=== PATIENT | female | born 1945 | race Asian ===

== ENCOUNTER 2019-07-12 16:56 | Inpatient (IN) | payer OTHER ==
[~2019-07-12] VITALS: Ht 160 cm; Wt 73.5 kg
[2019-07-12 17:35] VITALS: Ht 160 cm; Wt 73.5 kg
[2019-07-12 17:44] LABS: PLATELET COUNT 154 x10^3mcL (130-400)
[2019-07-12 18:33] LABS: ALKALINE PHOSPHATASE 219 U/L (46-116); ALT/SGPT 23 U/L (14-59); AST/SGOT 21 U/L (15-37); BILIRUBIN TOTAL 0.89 mg/dL (0.20-1.00); CALCIUM 9.6 mg/dL (8.5-10.1); CARBON DIOXIDE 19.1 mmol/L (21-32); CHLORIDE SERUM 92 mmol/L (98-107); CREATININE SERUM 2.4 mg/dL (0.6-1.0); LACTIC DEHYDROGENASE (LDH) 233 U/L (100-190); SODIUM SERUM 128 mmol/L (136-145); TOTAL PROTEIN, SERUM 7.2 g/dL (6.4-8.2)
[2019-07-12 18:37] LABS: GLUCOSE SERUM 635 mg/dL (74-106)
[2019-07-12 18:50] LABS: microscopic required? YES; urine erythrocyte 3+ (NEGATIVE)
[2019-07-12 19:08] LABS: BAND NEUTROPHIL 8 % (0-10); BASOPHIL 0 % (0-2); METAMYELOCTE 2 % (0-2); MONOCYTE 1 % (0-7); SEGMENTED NEUTROPHILS 84 % (37-75)
[2019-07-12 19:09] LABS: rbc morphology (normal/abnorm) NORMAL (NORMAL)
[2019-07-12 20:01] LABS: C REACTIVE PROTEIN 21.4 mg/dL (<=0.9)
[2019-07-12] MEDS ORDERED: ADALAT CC30 MG PO (20:29)
[2019-07-12 21:56] LABS: CALCIUM 8.1 mg/dL (8.5-10.1); CARBON DIOXIDE 14.6 mmol/L (21-32); CHLORIDE SERUM 104 mmol/L (98-107); CREATININE SERUM 2.6 mg/dL (0.6-1.0); GLUCOSE SERUM 264 mg/dL (74-106); MAGNESIUM 1.5 mg/dL (1.8-2.4); PHOSPHOROUS 2.1 mg/dL (2.5-4.9); POTASSIUM SERUM 3.1 mmol/L (3.5-5.1); SODIUM SERUM 138 mmol/L (136-145)
[2019-07-12 23:15] VITALS: BP 102/48
[2019-07-13] VITALS: BP 83/42
[2019-07-13 01:09] LABS: CALCIUM 8.5 mg/dL (8.5-10.1); CARBON DIOXIDE 17.3 mmol/L (21-32); CHLORIDE SERUM 103 mmol/L (98-107); CREATININE SERUM 2.5 mg/dL (0.6-1.0); GLUCOSE SERUM 234 mg/dL (74-106); MAGNESIUM 1.6 mg/dL (1.8-2.4); PHOSPHOROUS 2.2 mg/dL (2.5-4.9); POTASSIUM SERUM 3.2 mmol/L (3.5-5.1); SODIUM SERUM 138 mmol/L (136-145)
[2019-07-13 03:00] VITALS: BP 106/55
[2019-07-13 06:11] LABS: CALCIUM 8.5 mg/dL (8.5-10.1); CHLORIDE SERUM 103 mmol/L (98-107); CREATININE SERUM 2.5 mg/dL (0.6-1.0); GLUCOSE SERUM 304 mg/dL (74-106); LACTIC DEHYDROGENASE (LDH) 280 U/L (100-190); MAGNESIUM 2.2 mg/dL (1.8-2.4); PHOSPHOROUS 2.4 mg/dL (2.5-4.9); POTASSIUM SERUM 5.4 mmol/L (3.5-5.1); SODIUM SERUM 134 mmol/L (136-145)
[2019-07-13 06:20] LABS: C REACTIVE PROTEIN 26.9 mg/dL (<=0.9)
[2019-07-13 07:26] LABS: RED CELL DISTRIBUTION WIDTH 13.4 % (11.5-14.5)
[2019-07-13 08:00] VITALS: BP 129/65
[2019-07-13 08:21] LABS: PLATELET COUNT 84 x10^3mcL (130-400)
[2019-07-13 08:39] LABS: CALCIUM 7.9 mg/dL (8.5-10.1); CARBON DIOXIDE 14.4 mmol/L (21-32); CHLORIDE SERUM 102 mmol/L (98-107); CREATININE SERUM 2.5 mg/dL (0.6-1.0); GLUCOSE SERUM 448 mg/dL (74-106); MAGNESIUM 1.8 mg/dL (1.8-2.4); PHOSPHOROUS 2.7 mg/dL (2.5-4.9); POTASSIUM SERUM 5.5 mmol/L (3.5-5.1); SODIUM SERUM 131 mmol/L (136-145)
[2019-07-13 09:44] LABS: BAND NEUTROPHIL 7 % (0-10); BASOPHIL 0 % (0-2); MONOCYTE 11 % (0-7); SEGMENTED NEUTROPHILS 77 % (37-75)
[2019-07-13 09:45] LABS: rbc morphology (normal/abnorm) ABNORMAL (NORMAL)
[2019-07-13 09:46] LABS: PLATELET MORPHOLOGY PLATELETS DECREASED
[2019-07-13 12:56] LABS: CALCIUM 8.1 mg/dL (8.5-10.1); CARBON DIOXIDE 14.5 mmol/L (21-32); CHLORIDE SERUM 100 mmol/L (98-107); CREATININE SERUM 2.8 mg/dL (0.6-1.0); GLUCOSE SERUM 443 mg/dL (74-106); MAGNESIUM 1.8 mg/dL (1.8-2.4); PHOSPHOROUS 2.6 mg/dL (2.5-4.9); POTASSIUM SERUM 4.9 mmol/L (3.5-5.1); SODIUM SERUM 130 mmol/L (136-145)
[2019-07-13 16:43] LABS: CALCIUM 8.1 mg/dL (8.5-10.1); CARBON DIOXIDE 17.7 mmol/L (21-32); CHLORIDE SERUM 102 mmol/L (98-107); CREATININE SERUM 2.8 mg/dL (0.6-1.0); GLUCOSE SERUM 300 mg/dL (74-106); MAGNESIUM 1.9 mg/dL (1.8-2.4); PHOSPHOROUS 1.7 mg/dL (2.5-4.9); POTASSIUM SERUM 4.7 mmol/L (3.5-5.1); SODIUM SERUM 133 mmol/L (136-145)
[2019-07-13 19:45] VITALS: BP 84/44
[2019-07-13 20:40] LABS: CALCIUM 7.9 mg/dL (8.5-10.1); CARBON DIOXIDE 17.9 mmol/L (21-32); CHLORIDE SERUM 104 mmol/L (98-107); CREATININE SERUM 3.2 mg/dL (0.6-1.0); GLUCOSE SERUM 134 mg/dL (74-106); MAGNESIUM 1.7 mg/dL (1.8-2.4); POTASSIUM SERUM 4.7 mmol/L (3.5-5.1); SODIUM SERUM 135 mmol/L (136-145)
[2019-07-13 20:57] LABS: PHOSPHOROUS 0.9 mg/dL (2.5-4.9)
[2019-07-14 00:02] VITALS: BP 81/52
[2019-07-14 02:00] LABS: CALCIUM 6.3 mg/dL (8.5-10.1); CHLORIDE SERUM 104 mmol/L (98-107); CREATININE SERUM 2.8 mg/dL (0.6-1.0); GLUCOSE SERUM 344 mg/dL (74-106); MAGNESIUM 1.5 mg/dL (1.8-2.4); PHOSPHOROUS 1.5 mg/dL (2.5-4.9); POTASSIUM SERUM 4.5 mmol/L (3.5-5.1); SODIUM SERUM 132 mmol/L (136-145)
[2019-07-14 03:10] VITALS: BP 91/56
[2019-07-14 04:39] LABS: RED CELL DISTRIBUTION WIDTH 13.9 % (11.5-14.5)
[2019-07-14 04:44] LABS: PLATELET COUNT 44 x10^3mcL (130-400)
[2019-07-14 04:54] LABS: CALCIUM 7.4 mg/dL (8.5-10.1); CARBON DIOXIDE 19.7 mmol/L (21-32); CHLORIDE SERUM 100 mmol/L (98-107); CREATININE SERUM 3.4 mg/dL (0.6-1.0); GLUCOSE SERUM 276 mg/dL (74-106); MAGNESIUM 1.8 mg/dL (1.8-2.4); PHOSPHOROUS 2.1 mg/dL (2.5-4.9); SODIUM SERUM 130 mmol/L (136-145)
[2019-07-14 05:54] LABS: BAND NEUTROPHIL 28 % (0-10); BASOPHIL 0 % (0-2); METAMYELOCTE 2 % (0-2); MONOCYTE 3 % (0-7); SEGMENTED NEUTROPHILS 60 % (37-75); rbc morphology (normal/abnorm) NORMAL (NORMAL)
[2019-07-14 05:55] LABS: PLATELET MORPHOLOGY LARGE PLATELET SEEN
[2019-07-14 08:00] VITALS: BP 103/65
[2019-07-14 09:00] LABS: CALCIUM 7.6 mg/dL (8.5-10.1); CARBON DIOXIDE 16.8 mmol/L (21-32); CHLORIDE SERUM 101 mmol/L (98-107); CREATININE SERUM 3.5 mg/dL (0.6-1.0); GLUCOSE SERUM 247 mg/dL (74-106); PHOSPHOROUS 2.2 mg/dL (2.5-4.9); SODIUM SERUM 129 mmol/L (136-145)
[2019-07-14 12:30] LABS: CALCIUM 7.4 mg/dL (8.5-10.1); CARBON DIOXIDE 18.6 mmol/L (21-32); CHLORIDE SERUM 98 mmol/L (98-107); CREATININE SERUM 3.6 mg/dL (0.6-1.0); GLUCOSE SERUM 356 mg/dL (74-106); MAGNESIUM 1.9 mg/dL (1.8-2.4); PHOSPHOROUS 2.3 mg/dL (2.5-4.9); POTASSIUM SERUM 4.9 mmol/L (3.5-5.1); SODIUM SERUM 128 mmol/L (136-145)
[2019-07-14 16:37] LABS: CALCIUM 7.4 mg/dL (8.5-10.1); CARBON DIOXIDE 19.7 mmol/L (21-32); CHLORIDE SERUM 97 mmol/L (98-107); CREATININE SERUM 3.7 mg/dL (0.6-1.0); GLUCOSE SERUM 324 mg/dL (74-106); MAGNESIUM 1.7 mg/dL (1.8-2.4); PHOSPHOROUS 2.8 mg/dL (2.5-4.9); POTASSIUM SERUM 4.9 mmol/L (3.5-5.1); SODIUM SERUM 129 mmol/L (136-145)
[2019-07-14 21:35] VITALS: BP 119/64
[2019-07-14 23:16] VITALS: BP 111/69
[2019-07-15 03:08] VITALS: BP 111/58
[2019-07-15 06:06] LABS: RED CELL DISTRIBUTION WIDTH 13.8 % (11.5-14.5)
[2019-07-15 06:15] LABS: PLATELET COUNT 58 x10^3mcL (130-400)
[2019-07-15 06:25] LABS: CALCIUM 7.4 mg/dL (8.5-10.1); CARBON DIOXIDE 21.5 mmol/L (21-32); CHLORIDE SERUM 98 mmol/L (98-107); GLUCOSE SERUM 207 mg/dL (74-106); MAGNESIUM 1.8 mg/dL (1.8-2.4); POTASSIUM SERUM 4.3 mmol/L (3.5-5.1); SODIUM SERUM 132 mmol/L (136-145)
[2019-07-15 07:42] VITALS: BP 124/70
[2019-07-15 13:30] LABS: BAND NEUTROPHIL 27 % (0-10); MONOCYTE 3 % (0-7); SEGMENTED NEUTROPHILS 62 % (37-75)
[2019-07-15 13:31] LABS: PLATELET MORPHOLOGY PLATELETS NORMAL; rbc morphology (normal/abnorm) NORMAL (NORMAL)
[2019-07-15 20:44] VITALS: BP 134/62
[2019-07-16 05:10] VITALS: BP 118/58
[2019-07-16 06:11] LABS: RED CELL DISTRIBUTION WIDTH 13.8 % (11.5-14.5)
[2019-07-16 06:23] LABS: CALCIUM 8.2 mg/dL (8.5-10.1); CARBON DIOXIDE 28.4 mmol/L (21-32); CHLORIDE SERUM 103 mmol/L (98-107); CREATININE SERUM 3.3 mg/dL (0.6-1.0); GLUCOSE SERUM 178 mg/dL (74-106); MAGNESIUM 2.1 mg/dL (1.8-2.4); POTASSIUM SERUM 3.9 mmol/L (3.5-5.1); SODIUM SERUM 140 mmol/L (136-145)
[2019-07-16 06:24] LABS: PLATELET COUNT 50 x10^3mcL (130-400)
[2019-07-16 07:47] VITALS: BP 162/65
[2019-07-16 08:30] VITALS: BP 150/62
[2019-07-16 09:18] LABS: BASOPHIL 0 % (0-2); MONOCYTE 5 % (0-7)
[2019-07-16 09:24] LABS: BAND NEUTROPHIL 20 % (0-10); SEGMENTED NEUTROPHILS 65 % (37-75)
[2019-07-16 09:26] LABS: PLATELET MORPHOLOGY PLATELETS DECREASED
[2019-07-16 09:27] LABS: rbc morphology (normal/abnorm) ABNORMAL (NORMAL); target cell (codocyte) 1+
[2019-07-16 12:34] VITALS: BP 150/86
[2019-07-16 16:25] VITALS: BP 129/98
[2019-07-16 20:25] VITALS: BP 181/87
[2019-07-17 05:25] VITALS: BP 144/88
[2019-07-17 07:21] VITALS: BP 152/105
[2019-07-17 09:19] LABS: RED CELL DISTRIBUTION WIDTH 13.9 % (11.5-14.5)
[2019-07-17 09:25] LABS: PLATELET COUNT 65 x10^3mcL (130-400)
[2019-07-17 09:26] LABS: CALCIUM 8.7 mg/dL (8.5-10.1); CARBON DIOXIDE 26.5 mmol/L (21-32); CHLORIDE SERUM 103 mmol/L (98-107); GLUCOSE SERUM 208 mg/dL (74-106); POTASSIUM SERUM 3.8 mmol/L (3.5-5.1); SODIUM SERUM 143 mmol/L (136-145)
[2019-07-17 09:34] LABS: CREATININE SERUM 4.3 mg/dL (0.6-1.0)
[2019-07-17 10:14] LABS: MONOCYTE 14 % (0-7); SEGMENTED NEUTROPHILS 86 % (37-75)
[2019-07-17 10:16] LABS: PLATELET MORPHOLOGY PLATELETS DECREASED
[2019-07-17 10:41] LABS: rbc morphology (normal/abnorm) NORMAL (NORMAL)
[2019-07-17 11:26] VITALS: BP 147/94
[2019-07-17 16:30] VITALS: BP 147/76
[2019-07-17 21:10] VITALS: BP 176/90
[2019-07-18 06:23] VITALS: BP 159/84
[2019-07-18 07:12] LABS: CALCIUM 8.7 mg/dL (8.5-10.1); CARBON DIOXIDE 29.4 mmol/L (21-32); CHLORIDE SERUM 100 mmol/L (98-107); CREATININE SERUM 3.6 mg/dL (0.6-1.0); GLUCOSE SERUM 156 mg/dL (74-106); POTASSIUM SERUM 3.5 mmol/L (3.5-5.1); SODIUM SERUM 140 mmol/L (136-145)
[2019-07-18 07:30] LABS: RED CELL DISTRIBUTION WIDTH 13.4 % (11.5-14.5)
[2019-07-18 07:47] LABS: PLATELET COUNT 92 x10^3mcL (130-400)
[2019-07-18 08:30] VITALS: BP 179/72
[2019-07-18 09:41] LABS: BAND NEUTROPHIL 0 % (0-10); BASOPHIL 0 % (0-2); MONOCYTE 22 % (0-7); SEGMENTED NEUTROPHILS 69 % (37-75)
[2019-07-18 09:42] LABS: PLATELET MORPHOLOGY PLATELETS DECREASED; rbc morphology (normal/abnorm) ABNORMAL (NORMAL)
[2019-07-18 12:03] VITALS: BP 157/73
[2019-07-18 16:35] VITALS: BP 165/90
[2019-07-18 18:36] VITALS: BP 162/77
[2019-07-18 19:19] VITALS: BP 165/82
[2019-07-19 05:15] VITALS: BP 156/69
[2019-07-19 07:07] LABS: CALCIUM 8.7 mg/dL (8.5-10.1); CARBON DIOXIDE 27.7 mmol/L (21-32); CHLORIDE SERUM 98 mmol/L (98-107); CREATININE SERUM 3.8 mg/dL (0.6-1.0); GLUCOSE SERUM 178 mg/dL (74-106); POTASSIUM SERUM 3.3 mmol/L (3.5-5.1); SODIUM SERUM 136 mmol/L (136-145)
[2019-07-19 07:17] LABS: RED CELL DISTRIBUTION WIDTH 13.6 % (11.5-14.5)
[2019-07-19 07:30] VITALS: BP 139/73
[2019-07-19 07:37] LABS: PLATELET COUNT 115 x10^3mcL (130-400)
[2019-07-19 08:34] VITALS: BP 139/73
[2019-07-19 10:54] LABS: BAND NEUTROPHIL 15 % (0-10); BASOPHIL 0 % (0-2); METAMYELOCTE 1 % (0-2); MONOCYTE 6 % (0-7); MYELOCYTE 1 % (0-2); SEGMENTED NEUTROPHILS 69 % (37-75)
[2019-07-19 10:55] LABS: PLATELET MORPHOLOGY LARGE PLATELET SEEN; rbc morphology (normal/abnorm) ABNORMAL (NORMAL)
[2019-07-19 12:08] VITALS: BP 132/64
[2019-07-19 16:16] VITALS: BP 125/69
[2019-07-19 20:25] VITALS: BP 148/62
[2019-07-20] VITALS (7 sets, daily range): BP systolic 143–176; BP diastolic 61–83
[2019-07-20 06:49] LABS: PLATELET COUNT 159 x10^3mcL (130-400); RED CELL DISTRIBUTION WIDTH 13.4 % (11.5-14.5)
[2019-07-20 07:12] LABS: CALCIUM 8.5 mg/dL (8.5-10.1); CHLORIDE SERUM 104 mmol/L (98-107); GLUCOSE SERUM 151 mg/dL (74-106); POTASSIUM SERUM 3.4 mmol/L (3.5-5.1); SODIUM SERUM 141 mmol/L (136-145)
[2019-07-20 08:06] LABS: BILIRUBIN DIRECT 0.21 mg/dL (0.0-0.2); BILIRUBIN TOTAL 0.69 mg/dL (0.20-1.00)
[2019-07-20 08:08] LABS: ALBUMIN 2.1 g/dL (3.4-5.0); TOTAL PROTEIN, SERUM 5.8 g/dL (6.4-8.2)
[2019-07-20 11:15] LABS: BAND NEUTROPHIL 10 % (0-10); MONOCYTE 4 % (0-7); SEGMENTED NEUTROPHILS 78 % (37-75)
[2019-07-20 11:18] LABS: rbc morphology (normal/abnorm) NORMAL (NORMAL)
[2019-07-21] VITALS (8 sets, daily range): BP systolic 131–183; BP diastolic 62–80
[2019-07-21] MEDS ORDERED: ABILIFY5 M1 PO (01:18)
[2019-07-21 07:20] LABS: CALCIUM 9.1 mg/dL (8.5-10.1); CARBON DIOXIDE 23.1 mmol/L (21-32); CHLORIDE SERUM 100 mmol/L (98-107); CREATININE SERUM 3.4 mg/dL (0.6-1.0); GLUCOSE SERUM 154 mg/dL (74-106); POTASSIUM SERUM 3.4 mmol/L (3.5-5.1); SODIUM SERUM 136 mmol/L (136-145)
[2019-07-21 08:54] LABS: PLATELET COUNT 242 x10^3mcL (130-400); RED CELL DISTRIBUTION WIDTH 13.4 % (11.5-14.5)
[2019-07-21 13:05] LABS: BAND NEUTROPHIL 0 % (0-10); BASOPHIL 0 % (0-2); MONOCYTE 5 % (0-7); SEGMENTED NEUTROPHILS 90 % (37-75)
[2019-07-21 13:06] LABS: PLATELET MORPHOLOGY PLATELETS DECREASED
[2019-07-21 13:07] LABS: rbc morphology (normal/abnorm) ABNORMAL (NORMAL)
[2019-07-22] VITALS (7 sets, daily range): BP systolic 134–171; BP diastolic 50–86
[2019-07-22 06:45] LABS: PLATELET COUNT 228 x10^3mcL (130-400); RED CELL DISTRIBUTION WIDTH 13.2 % (11.5-14.5)
[2019-07-22 07:01] LABS: CALCIUM 8.6 mg/dL (8.5-10.1); CARBON DIOXIDE 25.2 mmol/L (21-32); CHLORIDE SERUM 103 mmol/L (98-107); CREATININE SERUM 2.5 mg/dL (0.6-1.0); GLUCOSE SERUM 175 mg/dL (74-106); POTASSIUM SERUM 3.4 mmol/L (3.5-5.1); SODIUM SERUM 139 mmol/L (136-145)
[2019-07-22 07:03] LABS: BASOPHIL % 0 % (0-2)
[2019-07-23 05:25] VITALS: BP 151/66
[2019-07-23 06:45] LABS: CALCIUM 9.2 mg/dL (8.5-10.1); CARBON DIOXIDE 25.3 mmol/L (21-32); CHLORIDE SERUM 105 mmol/L (98-107); CREATININE SERUM 2.9 mg/dL (0.6-1.0); GLUCOSE SERUM 137 mg/dL (74-106); POTASSIUM SERUM 3.7 mmol/L (3.5-5.1); SODIUM SERUM 140 mmol/L (136-145)
[2019-07-23 07:23] LABS: PLATELET COUNT 286 x10^3mcL (130-400); RED CELL DISTRIBUTION WIDTH 13.4 % (11.5-14.5)
[2019-07-23 07:42] LABS: BASOPHIL % 0 % (0-2)
[2019-07-23 09:04] VITALS: BP 150/71
[2019-07-23 20:12] VITALS: BP 149/62
[2019-07-24 05:51] VITALS: BP 145/66
[2019-07-24 06:35] LABS: BASOPHIL % 0.1 % (0-2); PLATELET COUNT 309 x10^3mcL (130-400); RED CELL DISTRIBUTION WIDTH 13.4 % (11.5-14.5)
[2019-07-24 06:50] LABS: CALCIUM 8.3 mg/dL (8.5-10.1); CARBON DIOXIDE 27.1 mmol/L (21-32); CHLORIDE SERUM 103 mmol/L (98-107); CREATININE SERUM 2.3 mg/dL (0.6-1.0); GLUCOSE SERUM 131 mg/dL (74-106); POTASSIUM SERUM 3.6 mmol/L (3.5-5.1); SODIUM SERUM 141 mmol/L (136-145)
[2019-07-24 08:42] VITALS: BP 144/68
[2019-07-24 12:12] VITALS: BP 121/56
[2019-07-24 16:14] VITALS: BP 140/64
[2019-07-24 19:54] VITALS: BP 141/63
[2019-07-25 05:26] VITALS: BP 138/69
[2019-07-25 06:41] LABS: CARBON DIOXIDE 23.9 mmol/L (21-32); CHLORIDE SERUM 104 mmol/L (98-107); CREATININE SERUM 2.5 mg/dL (0.6-1.0); GLUCOSE SERUM 154 mg/dL (74-106); POTASSIUM SERUM 3.4 mmol/L (3.5-5.1); SODIUM SERUM 139 mmol/L (136-145)
[2019-07-25 07:02] LABS: BASOPHIL % 0.2 % (0-2); PLATELET COUNT 291 x10^3mcL (130-400); RED CELL DISTRIBUTION WIDTH 13.3 % (11.5-14.5)
[2019-07-25 09:10] VITALS: BP 134/57
[2019-07-25 10:31] VITALS: BP 134/57
[2019-07-25 14:03] VITALS: BP 131/63
[2019-07-25 17:25] VITALS: BP 141/79
[2019-07-25 21:35] VITALS: BP 149/65
[2019-07-26 04:40] VITALS: BP 152/67
[2019-07-26 06:53] LABS: BASOPHIL % 0.5 % (0-2); PLATELET COUNT 362 x10^3mcL (130-400); RED CELL DISTRIBUTION WIDTH 13.3 % (11.5-14.5)
[2019-07-26 07:06] LABS: CALCIUM 9.4 mg/dL (8.5-10.1); CARBON DIOXIDE 22.6 mmol/L (21-32); CHLORIDE SERUM 108 mmol/L (98-107); CREATININE SERUM 2.3 mg/dL (0.6-1.0); GLUCOSE SERUM 106 mg/dL (74-106); POTASSIUM SERUM 3.6 mmol/L (3.5-5.1); SODIUM SERUM 142 mmol/L (136-145)
[2019-07-26 09:01] VITALS: BP 146/57
[2019-07-26 13:08] VITALS: BP 131/64
[2019-07-26 17:59] VITALS: BP 146/62
[2019-07-26 20:41] VITALS: BP 137/71
[2019-07-27 05:22] VITALS: BP 143/61
[2019-07-27 06:53] LABS: BASOPHIL % 0.6 % (0-2); PLATELET COUNT 386 x10^3mcL (130-400); RED CELL DISTRIBUTION WIDTH 13.2 % (11.5-14.5)
[2019-07-27 07:15] LABS: CALCIUM 9.1 mg/dL (8.5-10.1); CARBON DIOXIDE 23.7 mmol/L (21-32); CHLORIDE SERUM 107 mmol/L (98-107); CREATININE SERUM 2.2 mg/dL (0.6-1.0); GLUCOSE SERUM 89 mg/dL (74-106); MAGNESIUM 1.8 mg/dL (1.8-2.4); PHOSPHOROUS 5.3 mg/dL (2.5-4.9); POTASSIUM SERUM 3.8 mmol/L (3.5-5.1); SODIUM SERUM 143 mmol/L (136-145)
[2019-07-27 08:30] VITALS: BP 160/59
[2019-07-27 12:28] VITALS: BP 130/52
[2019-07-27 14:58] LABS: CREATININE UR 32.3 mg/dL (0.60-1.80)
[2019-07-27 16:29] VITALS: BP 126/52
[2019-07-27 17:09] LABS: WEIGHT (LBS) 160 lbs
[2019-07-27 17:11] LABS: HEIGHT 63 inches; VOLUME UR 1500 ML
[2019-07-27 17:31] LABS: COLLECTION TIME URINE 24 HOUR; CREATININE CLEARANCE UR 15 mL/min (88-128); CREATININE SERUM 2.2 mg/dL (0.6-1.0)
[2019-07-27 20:30] VITALS: BP 143/64
[2019-07-27 21:46] VITALS: BP 142/62
[2019-07-28 05:18] VITALS: BP 125/80
[2019-07-28 06:30] LABS: BASOPHIL % 0.5 % (0-2); RED CELL DISTRIBUTION WIDTH 13.5 % (11.5-14.5)
[2019-07-28 06:49] LABS: CALCIUM 8.7 mg/dL (8.5-10.1); CARBON DIOXIDE 26.3 mmol/L (21-32); CHLORIDE SERUM 105 mmol/L (98-107); CREATININE SERUM 1.8 mg/dL (0.6-1.0); GLUCOSE SERUM 144 mg/dL (74-106); POTASSIUM SERUM 3.8 mmol/L (3.5-5.1); SODIUM SERUM 141 mmol/L (136-145)
[2019-07-28 07:17] LABS: PLATELET COUNT 405 x10^3mcL (130-400)
[2019-07-28 08:10] VITALS: BP 135/50
[2019-07-28 11:44] VITALS: BP 124/61
[2019-07-28 16:18] VITALS: BP 120/50
[2019-07-28 19:23] VITALS: BP 125/54
[2019-07-29 06:02] VITALS: BP 135/65
[2019-07-29 08:09] VITALS: BP 123/57
[2019-07-29 09:59] LABS: CARBON DIOXIDE 26.3 mmol/L (21-32); CHLORIDE SERUM 104 mmol/L (98-107); CREATININE SERUM 2.3 mg/dL (0.6-1.0); GLUCOSE SERUM 269 mg/dL (74-106); POTASSIUM SERUM 4.3 mmol/L (3.5-5.1); SODIUM SERUM 138 mmol/L (136-145)
[2019-07-29 16:12] VITALS: BP 117/60
[2019-07-29 19:27] VITALS: BP 137/61
[2019-07-30 05:12] LABS: BASOPHIL % 0.5 % (0-2); RED CELL DISTRIBUTION WIDTH 13.3 % (11.5-14.5)
[2019-07-30 05:13] LABS: PLATELET COUNT 429 x10^3mcL (130-400)
[2019-07-30 05:33] LABS: CARBON DIOXIDE 24.6 mmol/L (21-32); CHLORIDE SERUM 106 mmol/L (98-107); CREATININE SERUM 2.2 mg/dL (0.6-1.0); GLUCOSE SERUM 157 mg/dL (74-106); SODIUM SERUM 141 mmol/L (136-145)
[2019-07-30 06:59] VITALS: BP 111/47
[2019-07-30 08:08] VITALS: BP 127/51
[2019-07-30 17:25] VITALS: BP 129/57
[2019-07-31 05:45] VITALS: BP 128/65
[2019-07-31 06:22] LABS: CALCIUM 8.8 mg/dL (8.5-10.1); CARBON DIOXIDE 28.8 mmol/L (21-32); CHLORIDE SERUM 104 mmol/L (98-107); GLUCOSE SERUM 139 mg/dL (74-106); POTASSIUM SERUM 3.9 mmol/L (3.5-5.1); SODIUM SERUM 142 mmol/L (136-145)
[2019-07-31 06:25] LABS: BASOPHIL % 0.5 % (0-2); RED CELL DISTRIBUTION WIDTH 13.3 % (11.5-14.5)
[2019-07-31 06:45] LABS: PLATELET COUNT 423 x10^3mcL (130-400)
[2019-07-31 08:27] VITALS: BP 105/43
[2019-07-31 17:27] VITALS: BP 128/51
[2019-07-31 20:40] VITALS: BP 134/64
[2019-08-01 05:10] VITALS: BP 120/52
[2019-08-01 06:59] LABS: BASOPHIL % 0.3 % (0-2); RED CELL DISTRIBUTION WIDTH 13.3 % (11.5-14.5)
[2019-08-01 07:02] LABS: CALCIUM 9.1 mg/dL (8.5-10.1); CARBON DIOXIDE 26.2 mmol/L (21-32); CHLORIDE SERUM 104 mmol/L (98-107); CREATININE SERUM 1.9 mg/dL (0.6-1.0); GLUCOSE SERUM 127 mg/dL (74-106); POTASSIUM SERUM 4.1 mmol/L (3.5-5.1); SODIUM SERUM 141 mmol/L (136-145)
[2019-08-01 07:03] LABS: PLATELET COUNT 425 x10^3mcL (130-400)
[2019-08-01 07:43] VITALS: BP 130/85
[2019-08-01 11:52] VITALS: BP 110/66
[2019-08-01 17:02] VITALS: BP 119/51
[2019-08-01 20:35] VITALS: BP 124/58
[2019-08-02 05:19] VITALS: BP 130/61
[2019-08-02 05:23] LABS: CREATININE UR 34.9 mg/dL (0.60-1.80)
[2019-08-02 05:25] LABS: COLLECTION TIME URINE 24 HOUR; CREATININE CLEARANCE UR 17 mL/min (88-128); CREATININE SERUM 1.9 mg/dL (0.6-1.0); HEIGHT 63 inches; VOLUME UR 1200 ML; WEIGHT (LBS) 132 lbs
[2019-08-02 06:30] LABS: BASOPHIL % 0.5 % (0-2)
[2019-08-02 06:32] LABS: CALCIUM 9.3 mg/dL (8.5-10.1); CARBON DIOXIDE 25.4 mmol/L (21-32); CHLORIDE SERUM 106 mmol/L (98-107); CREATININE SERUM 1.8 mg/dL (0.6-1.0); GLUCOSE SERUM 101 mg/dL (74-106); POTASSIUM SERUM 3.9 mmol/L (3.5-5.1); SODIUM SERUM 143 mmol/L (136-145)
[2019-08-02 06:40] LABS: PLATELET COUNT 415 x10^3mcL (130-400)
[2019-08-02 07:52] VITALS: BP 113/68
[2019-08-02] MEDS ORDERED: BLOOD LANCETS1 EACH TOP (10:19)
[2019-08-02] MEDS ORDERED: INSULIN SYRING1 EA11 MC (10:19)
[2019-08-02] MEDS ORDERED: ACCU-CHEK GUID1 EACH MC (10:21)
[2019-08-02] MEDS ORDERED: ALCOHOL PREP70% TOP (10:21)
[2019-08-02] MEDS ORDERED: ACCU-CHEK GUID1 EAC3 MC (10:24)
[2019-08-02] MEDS ORDERED: ATORVASTATIN CA40 M1 PO (10:47)
[2019-08-02] MEDS ORDERED: ADA30 PO (10:48)
[2019-08-02] MEDS ORDERED: ZES5 PO (10:48)
[2019-08-02] MEDS ORDERED: ECO81 PO (10:48)
[2019-08-02] MEDS ORDERED: CARVEDILOL12.5 M1 PO (10:48)
[2019-08-02] MEDS ORDERED: LANTI SQ (10:49)
[2019-08-02] MEDS ORDERED: HUMULIN R100 U/1 M1 SC (10:49)
[2019-08-02 12:04] VITALS: BP 114/58
[2019-08-02 13:49] VITALS: BP 114/58
== END 2019-08-02 16:21 | disposition home or self-care (01) | DRG 871 ==
LOC: ED 16:56 → DU 19:21 → IC 19:21 → MU 19:21 → IC 19:48 → DU 07-15 17:50 → MU 07-18 15:57
PROVIDERS: Internal Medicine; Radiology Vascular & Interventional Radiology; Specialist; ADMIT Family Medicine; ATTEND Family Medicine
PROC: B54BZZA Ultrasonography of Right Lower Extremity Veins, Guidance (ICD-10-PCS; 2019-07-13)
PROC: 06HY33Z Insertion of Infusion Device into Lower Vein, Percutaneous Approach (ICD-10-PCS; 2019-07-13)
PROC: 5A09357 Assistance with Respiratory Ventilation, Less than 24 Consecutive Hours, Continuous Positive Airway Pressure (ICD-10-PCS; 2019-07-14)
PROC: 30233R1 Transfusion of Nonautologous Platelets into Peripheral Vein, Percutaneous Approach (ICD-10-PCS; principal; 2019-07-14 18:30)
PROC: 0T903ZZ Drainage of Right Kidney, Percutaneous Approach (ICD-10-PCS; 2019-07-15)
PROC: 02HV33Z Insertion of Infusion Device into Superior Vena Cava, Percutaneous Approach (ICD-10-PCS; 2019-07-15)
PROC: B5181ZA Fluoroscopy of Superior Vena Cava using Low Osmolar Contrast, Guidance (ICD-10-PCS; 2019-07-15)
PROC: B548ZZA Ultrasonography of Superior Vena Cava, Guidance (ICD-10-PCS; 2019-07-15)
PROC: 5A1D70Z Performance of Urinary Filtration, Intermittent, Less than 6 Hours Per Day (ICD-10-PCS; 2019-07-15)
PROC: 5A1D70Z Performance of Urinary Filtration, Intermittent, Less than 6 Hours Per Day (ICD-10-PCS; 2019-07-17)
PROC: 5A1D70Z Performance of Urinary Filtration, Intermittent, Less than 6 Hours Per Day (ICD-10-PCS; 2019-07-19)
PROC: 5A1D70Z Performance of Urinary Filtration, Intermittent, Less than 6 Hours Per Day (ICD-10-PCS; 2019-07-21)
PROC: 5A1D70Z Performance of Urinary Filtration, Intermittent, Less than 6 Hours Per Day (ICD-10-PCS; 2019-07-23)
PROC: 5A1D70Z Performance of Urinary Filtration, Intermittent, Less than 6 Hours Per Day (ICD-10-PCS; 2019-07-27)
PROC: 5A1D70Z Performance of Urinary Filtration, Intermittent, Less than 6 Hours Per Day (ICD-10-PCS; 2019-07-30)
DX: A41.51 Sepsis due to Escherichia coli [E. coli] (principal); E11.00 Type 2 diabetes mellitus with hyperosmolarity without nonketotic hyperglycemic-hyperosmolar coma (NKHHC); R65.21 Severe sepsis with septic shock; G93.41 Metabolic encephalopathy; N17.0 Acute kidney failure with tubular necrosis; J69.0 Pneumonitis due to inhalation of food and vomit; J96.01 Acute respiratory failure with hypoxia; E87.1 Hypo-osmolality and hyponatremia; N12 Tubulo-interstitial nephritis, not specified as acute or chronic; I50.9 Heart failure, unspecified; I11.0 Hypertensive heart disease with heart failure; Z20.828 Contact with and (suspected) exposure to other viral communicable diseases; E86.0 Dehydration; D69.6 Thrombocytopenia, unspecified; I25.5 Ischemic cardiomyopathy; B96.20 Unspecified Escherichia coli [E. coli] as the cause of diseases classified elsewhere; Z79.899 Other long term (current) drug therapy
CPT/HCPCS: 36556; 36600; 50432; 82962; 83880; 85378; 87804; 97112-GP; 97116-GP; 97530-GP; A4301; C1884; G0378; J0456; J0696; J1642; J1644; J1815; J2001; J2060; J2185 ×2; J2270; J2543; J2920; J3370; J3475; J3480; J3490; J7030; J7040; J7050; P9035; Q0092; Q9967; U0003-CS